=== PATIENT | female | born 1985 | race American Indian/Alaskan Native ===

== ENCOUNTER 2017-11-07 10:23 | Emergency (ER) | payer MEDICAID, OTHER ==
[2017-11-07 10:57] VITALS: BP 116/76
[2017-11-07] MEDS ORDERED: MOTRIN PO ONE (11:48)
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
--- NOTE | 2017-11-07 12:55 | Cat Scan Report ---
FINAL REPORT EXAM: CT HEAD/BRAIN WO CON HISTORY: headache TECHNIQUE: Axial noncontrast CT images of the brain were performed Total exam DLP 805.42 mGy-cm Comparison: None FINDINGS: Normal trejo-white differentiation without midline shift or mass effect. No acute extra-axial fluid collection or intraparenchymal blood products. Ventricles and cisterns have normal size and configuration. Incidental identified cavum septum pellucidum and cavum vergae. Prominent retrocerebellar CSF space may represent Dandy-Walker variant or zuri cisterna magna. Bilateral ethmoid air cell opacification partially. No displaced calvarial fracture. The remaining imaged paranasal sinuses are well aerated. IMPRESSION: Mild ethmoid sinus disease. No acute transcortical infarct, bleed, or mass. Normal anatomic variants.
== END 2017-11-07 13:12 | disposition home or self-care (01) ==
LOC: ED 10:23
DX: S00.93XA Contusion of unspecified part of head, initial encounter (principal); D57.1 Sickle-cell disease without crisis; Z79.899 Other long term (current) drug therapy; V89.2XXA Person injured in unspecified motor-vehicle accident, traffic, initial encounter; Y93.89 Activity, other specified; Y99.8 Other external cause status; Y92.410 Unspecified street and highway as the place of occurrence of the external cause
CPT/HCPCS: 70450; 99283